=== PATIENT | female | born 1970 | race Hispanic/Latino ===

== ENCOUNTER 2016-11-05 00:17 | Emergency (ER) | payer OTHER ==
[2016-11-05 00:17] VITALS: BMI 28.3
[2016-11-05 01:10] VITALS: BP 150/87; PULSE 88; RESP 18; TEMP 97.9; O2SAT 98
[2016-11-05] MEDS ORDERED: Tmp-Smz 800 mg-160 mg DS Tab PO ONE (01:18)
--- NOTE | 2016-11-05 01:19 | ED PDOC ---
Arrival/HPI - General Chief Complaint: Upper Extremity Problem/Injury Time Seen by Provider: 11/05/16 01:08 Historian: Patient - History of Present Illness Narrative History of Present Illness (Text): 11/05/16 01:21 Rosalia Evans is a 46 year old female, with a history of WA, presents to the emergency department for evaluation of possible insect bit on left hand. Initially noticed some swelling to the area which has not resolved. Patient currently complains of tingling sensation to left hand radiating along the arm. Denies any fever, chills, headache, dizziness, nausea, vomiting, diarrhea, diaphoresis, urinary symptoms, or any other complaints at this time. Time/Duration: Other (yesterday night ) Symptom Course: Improving Severity Level: Mild Activities at Onset: Light Past Medical History - Provider Review Nursing Documentation Reviewed: Yes - Tetanus Immunization Tetanus Immunization: Unknown - Cardiac Hx Cardiac Disorders: Yes (WA) Hx WA: Yes (02/09/13) Hx Hypertension: Yes - Pulmonary Hx Respiratory Disorders: Yes Hx Bronchitis: Yes - Neurological Hx Neurological Disorder: No - HEENT Hx HEENT Disorder: No - Renal Hx Renal Disorder: No - Endocrine/Metabolic Hx Endocrine Disorders: No - Hematological/Oncological Hx Blood Disorders: No - Integumentary Hx Dermatological Disorder: No - Musculoskeletal/Rheumatological Hx Musculoskeletal Disorders: No Hx Falls: No - Gastrointestinal Hx Gastrointestinal Disorders: No - Genitourinary/Gynecological Hx Genitourinary Disorders: No - Psychiatric Hx Psychophysiologic Disorder: Yes (INSOMNIA) Hx Anxiety: Yes Hx Depression: No Hx Emotional Abuse: No Hx Panic Disorder: Yes Hx Physical Abuse: No Hx Substance Use: No - Past Surgical History Past Surgical History: No Previous - Surgical History Hx Cardiac Catheterization: Yes () Hx Coronary Stent: Yes (X1 02-09-13) - Suicidal Assessment Feels Threatened In Home Enviroment: No Family/Social History - Physician Review Nursing Documentation Reviewed: Yes Family/Social History: No Known Family HX Smoking Status: Former Smoker Hx Alcohol Use: Yes Frequency of alcohol use: Socially Hx Substance Use: No Hx Substance Use Treatment: No Allergies/Home Meds Allergies/Adverse Reactions: Allergies No Known Allergies Allergy (Verified 11/05/16 01:12) Home Medications: Home Meds Medication Instructions Recorded Confirmed Metoprolol Succinate [Metoprolol 25 mg PO DAILY 03/09/13 11/05/16 Succinate] Alprazolam [Xanax] 0.5 mg PO PRN PRN 05/15/16 11/05/16 Aspirin [Aspirin Chewable] 81 mg PO DAILY 05/15/16 11/05/16 Clopidogrel [Plavix] 75 mg PO DAILY 05/15/16 11/05/16 Zolpidem [Ambien] 10 mg PO HS 05/15/16 11/05/16 Review of Systems - Physician Review All systems were reviewed & negative as marked: Yes - Review of Systems Constitutional: Normal. absent: Fatigue, Fevers Respiratory: Normal. absent: SOB, Cough, Sputum Cardiovascular: Normal. absent: Chest Pain, Palpitations Musculoskeletal: Other (insect bite on left hand, tingling sensation radiating along left arm ) Psychiatric: Normal Physical Exam Vital Signs Reviewed: Yes Vital Signs Temp Pulse Resp BP Pulse Ox 11/05/16 01:09 97.9 F 88 18 150/87 98 Temperature: Afebrile Blood Pressure: Normal Pulse: Regular Respiratory Rate: Normal Appearance: Positive for: Well-Appearing, Non-Toxic, Comfortable Pain Distress: None Mental Status: Positive for: Alert and Oriented X 3 - Systems Exam Head: Present: Atraumatic, Normocephalic Pupils: Present: PERRL Conjunctiva: Present: Normal Mouth: Present: Moist Mucous Membranes Respiratory/Chest: Present: Clear to Auscultation, Good Air Exchange. No: Respiratory Distress, Accessory Muscle Use Cardiovascular: Present: Regular Rate and Rhythm, Normal S1, S2. No: Murmurs Abdomen: Present: Normal Bowel Sounds. No: Tenderness, Distention, Peritoneal Signs Upper Extremity: Present: Normal ROM, NORMAL PULSES, Neurovascularly Intact, Capillary Refill < 2s, Other (a small punctate wound on the left 4th metacarpal. No surrounding erythema or swelling ). No: Cyanosis, Edema, Tenderness, Swelling, Deformity Lower Extremity: Present: Normal Inspection. No: Edema Neurological: Present: GCS=15, CN II-XII Intact, Speech Normal Skin: Present: Warm, Dry, Normal Color. No: Rashes Psychiatric: Present: Alert, Oriented x 3, Normal Insight, Normal Concentration Medical Decision Making ED Course and Treatment: 11/05/16 01:28 Impression:A 46 year old female who presents to the emergency department complaining of insect bite on left hand. Plan: -- EKG -- Bactrim -- Prednisone -- Reassess and disposition Progress Notes: 11/05/16 01:29 NSR @ 84 bpm. Rightward axis. Prolonged QT. 11/05/16 03:25 On re-evaluation, patient feels better and is in no acute distress. I have discussed the results and plan with the patient, who expresses understanding. Patient in agreement with plan to be discharged home. Patient is stable for discharge. Patient was instructed to follow up with physician or return if symptoms worsen or new concerning symptoms arise. - Medication Orders Current Medication Orders: Discontinued Medications Prednisone (Prednisone Tab) 60 mg PO ONCE STA Stop: 11/05/16 01:19 Last Admin: 11/05/16 01:40 Dose: 60 mg Trimethoprim/Sulfamethoxazole (Bactrim Ds Tab) 1 tab PO ONCE ONE PRN Reason: Protocol Stop: 11/05/16 01:19 Last Admin: 11/05/16 01:40 Dose: 1 tab - Scribe Statement The provider has reviewed the documentation as recorded by the Kenibjagdish Paul Provider Attestation: Provider Scribe Attestation: All medical record entries made by the Scribe were at my direction and personally dictated by me. I have reviewed the chart and agree that the record accurately reflects my personal performance of the history, physical exam, medical decision making, and the department course for this patient. I have also personally directed, reviewed, and agree with the discharge instructions and disposition. Disposition/Present on Arrival - Present on Arrival Any Indicators Present on Arrival: No History of DVT/PE: No History of Uncontrolled Diabetes: No Urinary Catheter: No History of Decub. Ulcer: No History Surgical Site Infection Following: None - Disposition Have Diagnosis and Disposition been Completed?: Yes Diagnosis: Insect bite Disposition: HOME/ ROUTINE Disposition Time: 03:40 Condition: GOOD Discharge Instructions (ExitCare): Insect Bite or Sting (ED) Prescriptions: Sulfamethoxazole/Trimethoprim [Bactrim DS 800 mg-160 mg] 1 tab PO BID #14 tab predniSONE [predniSONE Tab] 20 mg PO TID #15 tab Referrals: Tolu Meyer MD [Primary Care Provider] - Follow up with primary Forms: [employer] (Setswana)
--- NOTE | 2016-11-05 19:43 | CARD ---
APPROVED REPORT EKG Measurement Heart [id number] <Conclusion> Normal sinus rhythm Rightward axis Prolonged QT Abnormal ECG
== END 2016-11-05 03:39 | disposition home or self-care (01) ==
LOC: ED 00:17
DX: S60.562A Insect bite (nonvenomous) of left hand, initial encounter (principal); W57.XXXA Bitten or stung by nonvenomous insect and other nonvenomous arthropods, initial encounter

== ENCOUNTER 2017-10-09 00:22 | Observation (INO) | payer OTHER ==
[2017-10-09 00:32] VITALS: RESP 18
--- NOTE | 2017-10-09 00:53 | ED PDOC ---
Arrival/HPI - General Historian: Patient - History of Present Illness Symptom Onset: Gradual Symptom Course: Unchanged Activities at Onset: Light Context: Home - General Chief Complaint: Upper Extremity Problem/Injury Time Seen by Provider: 10/09/17 00:46 - History of Present Illness Narrative History of Present Illness (Text): 10/09/17 00:51 Rosalia Evans is a 47 year old female, whose past medical history includes CAD, WA s/p stent, hypertension, and anxiety, who presents to the Emergency department complaining of right thigh swelling. Patient states she developed swelling to her right thigh and right forearm while sitting at home about 12 hours prior. Patient reports associated chest pain. Patient denies any fever, chills, shortness of breath, nausea, vomiting, diarrhea, urinary symptoms, back pain, neck pain, headache, trauma/injury, or any other complaints. (Darryn Burnett) Past Medical History - Provider Review Nursing Documentation Reviewed: Yes - Tetanus Immunization Tetanus Immunization: Unknown - Cardiac Hx Cardiac Disorders: Yes (WA) Hx WA: Yes (02/09/13) Hx Hypertension: Yes - Pulmonary Hx Respiratory Disorders: Yes Hx Bronchitis: Yes - Neurological Hx Neurological Disorder: No - HEENT Hx HEENT Disorder: No - Renal Hx Renal Disorder: No - Hematological/Oncological Hx Blood Disorders: No Hx Cancer: Yes (Breast ca) - Integumentary Hx Dermatological Disorder: No - Musculoskeletal/Rheumatological Hx Musculoskeletal Disorders: No Hx Falls: No - Gastrointestinal Hx Gastrointestinal Disorders: No - Genitourinary/Gynecological Hx Genitourinary Disorders: No - Psychiatric Hx Psychophysiologic Disorder: Yes (INSOMNIA) Hx Anxiety: Yes Hx Depression: No Hx Emotional Abuse: No Hx Panic Disorder: Yes Hx Physical Abuse: No Hx Substance Use: No - Past Surgical History Past Surgical History: No Previous - Surgical History Hx Cardiac Catheterization: Yes () Hx Coronary Stent: Yes (X1 02-09-13) - Anesthesia Hx Anesthesia: No - Suicidal Assessment Feels Threatened In Home Enviroment: No Family/Social History - Physician Review Nursing Documentation Reviewed: Yes Family/Social History: Unknown Family HX Smoking Status: Former Smoker Hx Alcohol Use: Yes Frequency of alcohol use: Socially Hx Substance Use: No Hx Substance Use Treatment: No Allergies/Home Meds Allergies/Adverse Reactions: Allergies No Known Allergies Allergy (Verified 08/08/17 01:12) Home Medications: Home Meds Medication Instructions Recorded Confirmed Metoprolol Succinate 25 mg PO DAILY 03/09/13 10/09/17 Alprazolam [Xanax] 0.5 mg PO PRN PRN 05/15/16 10/09/17 Aspirin [Aspirin Chewable] 81 mg PO DAILY 05/15/16 10/09/17 Clopidogrel [Plavix] 75 mg PO DAILY 05/15/16 10/09/17 Zolpidem [Ambien] 10 mg PO HS 05/15/16 10/09/17 Review of Systems - Physician Review All systems were reviewed & negative as marked: Yes - Review of Systems Constitutional: Normal. absent: Fevers Eyes: Normal ENT: Normal Respiratory: Normal. absent: SOB, Cough Cardiovascular: Chest Pain Gastrointestinal: Normal. absent: Abdominal Pain, Diarrhea, Nausea, Vomiting Genitourinary Female: Normal. absent: Dysuria, Frequency, Hematuria, Urine Output Changes Musculoskeletal: Other (+right forearm swelling, +right thigh swelling). absent : Back Pain, Neck Pain Skin: Normal. absent: Rash Neurological: Normal. absent: Headache, Dizziness Endocrine: Normal Hemo/Lymphatic: Normal Psychiatric: Normal Physical Exam Vital Signs Reviewed: Yes Temperature: Afebrile Blood Pressure: Normal Pulse: Regular Respiratory Rate: Normal Appearance: Positive for: Well-Appearing, Non-Toxic, Comfortable Pain Distress: None Mental Status: Positive for: Alert and Oriented X 3 - Systems Exam Head: Present: Atraumatic, Normocephalic Pupils: Present: PERRL Extroacular Muscles: Present: EOMI Conjunctiva: Present: Normal Mouth: Present: Moist Mucous Membranes Neck: Present: Normal Range of Motion Respiratory/Chest: Present: Clear to Auscultation, Good Air Exchange. No: Respiratory Distress, Accessory Muscle Use Cardiovascular: Present: Regular Rate and Rhythm, Normal S1, S2. No: Murmurs Abdomen: No: Tenderness, Distention, Peritoneal Signs Back: Present: Normal Inspection Upper Extremity: Present: Other (Minimal urticaria to right forearm, pt scratching the area). No: Cyanosis, Edema Lower Extremity: Present: Swelling (Swelling to right medial thigh, indurated). No: Edema Neurological: Present: GCS=15, CN II-XII Intact, Speech Normal Skin: Present: Warm, Dry, Normal Color. No: Rashes Psychiatric: Present: Alert, Oriented x 3, Normal Insight, Normal Concentration Vital Signs Pulse Resp BP Pulse Ox 10/09/17 00:32 95 H 18 144/86 98 Medical Decision Making - EKG Interpretation Interpreted by ED Physician: Yes Type: 12 lead EKG ED Course and Treatment: 10/09/17 00:51 Impression: 47 year old female complaining of right forearm/thigh swelling and chest pain. Plan: -- US Duplex Upper Extremities -- US Duplex Lower Extremities -- EKG -- Chest X-ray -- Labs, cardiac enzymes -- Reassess and disposition Prior Visits: Notes and results from previous visits were reviewed. Progress Notes: Reviewed EKG, NSR at [address]-segment elevations or depressions, no T-wave inversions, normal intervals. 10/09/17 03:14 US Duplex Upper Extremities negative for DVT. US Duplex Lower Extremities showed enlarged cyst at right mid-thigh, negative for DVT. 10/09/17 03:31 Chest X-ray reviewed, shows: Lungs: Normal. No consolidation. Pleural space: Normal. No pneumothorax. Heart/Mediastinum: Normal. No cardiomegaly. Bones/joints: Unremarkable for age. IMPRESSION: No acute findings. 10/09/17 03:[address] Yang, who is aware and agrees with plan. Accepts pt in to his service. Pt will go to Telemetry observation for chest pain and leg cyst. Requests Dr. Gallegos on consult. (Darryn Burnett) - Lab Interpretations Lab Results: 10/09/17 01:02 10/09/17 01:02 Lab Results 10/09/17 01:02: WBC 8.4 D, RBC 4.19, Hgb 10.4 L, Hct 32.2 L, MCV 76.8 L, MCH 24.8 L, MCHC 32.3, RDW 15.8 H, Plt Count 390, MPV 9.6 10/09/17 01:02: Sodium 139, Potassium 4.0, Chloride 102, Carbon Dioxide 22, Anion Gap 19, BUN 6 L, Creatinine 0.5 L, Est GFR ( Amer) > 60, Est GFR ( Non-Af Amer) > 60, Random Glucose 93, Calcium 8.5, Total Bilirubin 0.3, AST 33, ALT 25, Alkaline Phosphatase 77, Lactate Dehydrogenase 386, Total Creatine Kinase 59, Troponin I < 0.01, Total Protein 7.8, Albumin 4.4, Globulin 3.4, Albumin/Globulin Ratio 1.3 10/09/17 01:02: PT 10.7, INR 0.94, APTT 38.2 H - RAD Interpretation Radiology Orders: 10/09/17 00:53 CHEST PORTABLE [RAD] Stat 10/09/17 00:58 DUPLEX LOWER EXTRM VEIN RIGHT [US] Stat 10/09/17 00:59 DUPLEX UPPER EXTRM VEIN RIGHT [US] Stat - Medication Orders Current Medication Orders: Discontinued Medications Alprazolam (Xanax) 0.5 mg PO BID PRN; Protocol PRN Reason: Anxiety Aspirin (Aspirin) 325 mg PO ONCE STA Stop: 10/09/17 03:48 Last Admin: 10/09/17 03:54 Dose: 325 mg Aspirin (Aspirin Chewable) 81 mg PO DAILY [facility] Last Admin: 10/09/17 10:32 Dose: 81 mg Atorvastatin Calcium (Lipitor) 80 mg PO DIN DAYSI Clopidogrel Bisulfate (Plavix) 75 mg PO DAILY [facility] Last Admin: 10/09/17 10:32 Dose: 75 mg Diphenhydramine HCl (Benadryl) 50 mg IVP STAT STA Stop: 10/09/17 01:28 Last Admin: 10/09/17 01:27 Dose: 50 mg IVP Administration Document 10/09/17 01:27 AD (Rec: 10/09/17 01:40 AD [id number]) Charges for Administration # of IVP Administrations 1 Metoprolol Succinate (Toprol Xl) 25 mg PO DAILY [facility] Last Admin: 10/09/17 10:32 Dose: 25 mg MAR Pulse and Blood Pressure Document 10/09/17 10:32 CD (Rec: 10/09/17 10:32 CD [id number]) Pulse Pulse Rate (60-90 beats/min) 74 Blood Pressure Blood Pressure (100/60-150/90 mm Hg) 124/81 - Scribe Statement The provider has reviewed the documentation as recorded by the Scribe - Scribe Statement Radha Prince All medical record entries made by the Scribe were at my direction and personally dictated by me. I have reviewed the chart and agree that the record accurately reflects my personal performance of the history, physical exam, medical decision making, and the department course for this patient. I have also personally directed, reviewed, and agree with the discharge instructions and disposition. (Darryn Burnett) Disposition/Present on Arrival - Present on Arrival Any Indicators Present on Arrival: No History of DVT/PE: No History of Uncontrolled Diabetes: No Urinary Catheter: No History of Decub. Ulcer: No History Surgical Site Infection Following: None - Disposition Have Diagnosis and Disposition been Completed?: Yes Disposition Time: 03:46 Patient Plan: Observation - Disposition Diagnosis: Chest pain, Cyst of skin Disposition: HOSPITALIZED Condition: STABLE
[2017-10-09 01:18] LABS: HEMOGLOBIN 10.4 g/dL (12.0-16.0); MEAN CELL VOLUME 76.8 fl (80.0-105.0); MEAN CORPUSCULAR HEMOGLOBIN 24.8 pg (25.0-35.0); MEAN CORPUSCULAR HGB CONC 32.3 g/dl (31.0-37.0); MEAN PLATELET VOLUME 9.6 fl (7.0-11.0); RBC 4.19 10^6/uL (3.5-6.1); RED CELL DISTRIBUTION WIDTH 15.8 % (11.5-14.5); WHITE BLOOD COUNT 8.4 10^3/ul (4.5-11.0)
[2017-10-09 01:22] LABS: ALB/GLOB RATIO 1.3 (1.1-1.8); ALBUMIN 4.4 g/dL (3.0-4.8); ALT/SGPT 25 U/L (7-56); AST/SGOT 33 U/L (14-36); BLOOD UREA NITROGEN 6 mg/dL (7-21); CALCIUM 8.5 mg/dL (8.4-10.5); GFR AFRICAN-AMERICAN > 60; GFR NON-AFRICAN AMERICAN > 60
[2017-10-09 01:24] LABS: INR 0.94 (0.93-1.08); PARTIAL THROMBOPLASTIN TIME 38.2 Seconds (25.1-36.5); PROTHROMBIN TIME 10.7 SECONDS (9.4-12.5)
[2017-10-09] MEDS ORDERED: DiphenhydrAMINE 50 mg/ml Inj IVP STA (01:27)
[2017-10-09 01:33] LABS: TROPONIN I < 0.01 ng/mL
[2017-10-09 04:40] VITALS: O2SAT 100
[2017-10-09 05:10] VITALS: BP 124/81; TEMP 98; BMI 26.1
--- NOTE | 2017-10-09 05:32 | CP.PCM.HP ---
<Zeenat Chauhan - Last Filed: 10/09/17 13:21> History of Present Illness - History of Present Illness History of Present Illness: H&P For Bertin Burris PGY3 This is a 47yo female with past medical history of CAD s/p PCI, anxiety and tobacco abuse who came to ED for hand lesion on R hand x 1 day. She reports it started yesterday and works inside and outside so she is not sure if she got bit by a bug. It was itchy and did not radiate or have any pus or swelling, but was red. She got benadryl in the ED and when she got the medication through the L arm she started to have chest pain in her L side of the chest that felt like a pressure. Patient reports she has anxiety and was not sure she it was her heart or her anxiety. The chest pain was intermittent and went away on its own. She had V.fib arrest and was found to have LAD occlusion with JEFFERSON placement in 2012. She has not seen Dr. Gallegos, her grass cutter since 2013. She still takes her medication. She also noticed a large lump in her L thigh that she noticed when she was in the ED. She did hit her leg yesterday while at work. She had a cyst in that area a long time ago and never had it removed. She denies chest pain, shortness of breath, nausea/vomiting/diarrhea, fever/chills, numbness/ tingling, dysuria/hematuria. In the ED, patient was found to be anemic with low MCV. She does admit to having heavy, frequent periods. She has not seen in wax pattern repairer in several years. Past medical history: V. fib cardiac arrest-CAD s/p PCI, anxiety, tobacco abuse Past surgical history: PCI Home meds: Reviewed as per MAR Allergies: NKDA Social history: Used to be heavy smoker, now smokes <1/2ppd x 5yrs, denies EtOH or drug use, works in hotels inside/outside, lives with family Family history: Dad: Age 30- sudden cardiac -hypertrophic cardiomyopathy Sister: Heart attack-age 45 Nephew: Pacemaker age 16 Present on Admission - Present on Admission Any Indicators Present on Admission: No Review of Systems - Review of Systems All systems: reviewed and no additional remarkable complaints except Review of Systems: 12 point ROS reviewed as per HPI and is otherwise negative. Past Patient History - Tetanus Immunizations Tetanus Immunization: Unknown - Past Social History Smoking Status: Light Smoker < 10 Cigarettes Daily - CARDIAC Hx Cardiac Disorders: Yes ([place]) Hx Cardia Arrhythmia: Yes (Vtach, Vfib 2012) Hx Hypercholesterolemia: Yes Hx Hypertension: Yes Hx Peripheral Vascular Disease: Yes - PULMONARY Hx Respiratory Disorders: Yes Hx Chronic Obstructive Pulmonary Disease (COPD): Yes - NEUROLOGICAL Hx Neurological Disorder: No - HEENT Hx HEENT Problems: No - RENAL Hx Chronic Kidney Disease: No - ENDOCRINE/METABOLIC Hx Endocrine Disorders: No - HEMATOLOGICAL/ONCOLOGICAL Hx Blood Disorders: No Hx Cancer: No (family hx) - INTEGUMENTARY Hx Dermatological Problems: No - MUSCULOSKELETAL/RHEUMATOLOGICAL Hx Musculoskeletal Disorders: No Hx Falls: No - GASTROINTESTINAL Hx Gastrointestinal Disorders: No - GENITOURINARY/GYNECOLOGICAL Hx Genitourinary Disorders: No - PSYCHIATRIC Hx Psychophysiologic Disorder: Yes (insomnia) Hx Anxiety: Yes Hx Panic Symptoms: Yes Hx Substance Use: No - SURGICAL HISTORY Hx Surgeries: No (cardiac cath) Hx Cardiac Catheterization: Yes (2012) Hx Coronary Stent: Yes (2012) - ANESTHESIA Hx Anesthesia: No Meds Home Medications: Home Medication List Medication Instructions Recorded Confirmed Type Ferrous Sulfate [Feosol] 325 mg PO TID #90 tab 10/09/17 Rx Pitavastatin Calcium [Livalo] 4 mg PO DAILY #30 tab 10/09/17 Rx Allergies/Adverse Reactions: Allergies Allergy/AdvReac Type Severity Reaction Status Date / Time No Known Allergies Allergy Verified 11/05/16 01:12 Physical Exam - Constitutional Appears: No Acute Distress - Head Exam Head Exam: ATRAUMATIC, NORMAL INSPECTION, NORMOCEPHALIC - Eye Exam Eye Exam: Normal appearance, PERRL Pupil Exam: NORMAL ACCOMODATION - ENT Exam ENT Exam: Mucous Membranes Moist - Respiratory Exam Respiratory Exam: Clear to Auscultation Bilateral, Stridor, NORMAL BREATHING PATTERN. absent: Rhonchi, Wheezes - Cardiovascular Exam Cardiovascular Exam: REGULAR RHYTHM, +S1, +S2. absent: Gallop, Rubs, Systolic Murmur - GI/Abdominal Exam GI & Abdominal Exam: Normal Bowel Sounds, Soft. absent: Mass, Rebound, Rigid, Tenderness - Extremities Exam Extremities exam: Positive for: normal inspection. Negative for: calf tenderness, pedal edema - Neurological Exam Neurological exam: Alert, CN II-XII Intact, Normal Gait, Oriented x3 - Psychiatric Exam Psychiatric exam: Normal Affect, Normal Mood - Skin Skin Exam: Dry, Intact, Warm Additional comments: Large lump on L anterior thigh, no erythema or pain or drainage R palm erythema near ulna - no pus or drainage Results - Vital Signs Recent Vital Signs: Last Vital Signs Temp 98.0 F 10/09/17 04:55 Pulse 72 10/09/17 05:01 Resp 18 10/09/17 04:55 BP 124/81 10/09/17 04:55 Pulse Ox 100 10/09/17 04:20 - Labs Result Diagrams: 10/09/17 01:02 10/09/17 01:02 Assessment & Plan - Assessment and Plan (Free Text) Assessment: This is a 47yo female with past medical history of CAD s/p PCI, anxiety and tobacco abuse who was admitted for 1. Atypical chest pain - can be secondary anxiety 2. Anemia - Microcytic- secondary to vaginal bleeding 3. Skin lesions - secondary to bug bite v. allergic reaction - US of Leg did not show evidence of DVT. US showed most likely cyst 4. Hx of CAD 5. Hx of Anxiety 6. Tobacco abuse Plan: Labs and imaging reviewed. Patient recommended to follow up with wax pattern repairer as outpatient for dysfunctional uterine bleeding. Recommended to take OTC iron. Patient was evaluated by grass cutter who recommended outpatient follow up and patient can be discharged. Lipid panel was done and patient started on high dose statin since family history of sudden cardiac . Patient will continue other home medication and follow up with Dr. Yang as outpatient in 1 week. Advised patiend on smoking cessation. Case seen, discussed and reviewed with Dr. Yang. Bertin Chauhan PGY3 - Date & Time Date: 10/09/17 Time: 07:00 <Orlando Yang - Last Filed: 10/09/17 23:13> Results - Vital Signs Recent Vital Signs: Last Vital Signs Temp 98.0 F 10/09/17 04:55 Pulse 74 10/09/17 10:32 Resp 18 10/09/17 06:00 BP 124/81 10/09/17 10:32 Pulse Ox 100 10/09/17 04:20 - Labs Result Diagrams: 10/09/17 01:02 07/12/18 01:02 Labs: Laboratory Results - last 24 hr 10/09/17 10/09/17 10/09/17 06:40 06:40 06:40 Iron 20 L TIBC 453 % Saturation 4 L Ferritin 6.6 Troponin I < 0.01 Triglycerides 175 H Cholesterol 219 H LDL Cholesterol Direct 133 H HDL Cholesterol 52 TSH 3rd Generation 10/09/17 06:40 Iron TIBC % Saturation Ferritin Troponin I Triglycerides Cholesterol LDL Cholesterol Direct HDL Cholesterol TSH 3rd Generation 1.97 Assessment & Plan - Assessment and Plan (Free Text) Plan: Pt seen and examined. I have reviewed the note of the medical charge entry specialist and agree with it. I have discussed the assessment and plan with the resident. I have reviewed the patient's labs and medications. Pt with atypical chest pain. Spoke to Dr Gallegos and pt can go home. Will be placed on Lipitor.
[2017-10-09 07:09] LABS: HDL CHOLESTEROL 52 mg/dL (29-60); IRON 20 ug/dL (45-180)
[2017-10-09 07:18] LABS: % IRON SATURATION 4 % (20-55); TOTAL IRON BINDING CAPACITY 453 ug/dL (265-497)
[2017-10-09 07:19] LABS: LDL CHOLESTEROL 133 mg/dL (0-129)
[2017-10-09 07:20] LABS: TROPONIN I < 0.01 ng/mL
--- NOTE | 2017-10-09 08:06 | RAD ---
Date of service: 10/09/2017 HISTORY: medical clearance COMPARISON: 02/09/2013 FINDINGS: LUNGS: There is an 18 mm density in the right lung apex suspicious for a lung mass or masslike consolidation. Further evaluation with CT is recommended. PLEURA: No significant pleural effusion identified, no pneumothorax apparent. CARDIOVASCULAR: Normal. OSSEOUS STRUCTURES: No significant abnormalities. VISUALIZED UPPER ABDOMEN: Normal. OTHER FINDINGS: None. IMPRESSION: There is an 18 mm density in the right lung apex suspicious for a lung mass or masslike consolidation. Further evaluation with CT is recommended.
[2017-10-09] MEDS ORDERED: Metoprolol Succinate 25 mg XL Tab PO SCH (10:00)
[2017-10-09 10:33] VITALS: PULSE 74
--- NOTE | 2017-10-09 12:33 | CON ---
DATE: 10/09/2017 CARDIOLOGY CONSULTATION HISTORY OF PRESENT ILLNESS: The patient is a 47-year-old woman who presented with a little swelling of her right upper extremity. After IV injection, the patient complained of pain in the left arm as well as extending to the upper part of the chest. The patient's past medical history is notable for history of an anterior wall myocardial infarction, treated with emergency PTCA and stent of a 99% LAD years ago. In addition, she has documented severe peripheral vascular disease, COPD, hypertension and hypercholesterolemia. She continues to smoke. Currently, the patient is chest pain-free. SOCIAL HISTORY The patient is an active smoker unapologetically. REVIEW OF SYSTEMS: A 14-point review of systems was reviewed in detail. No cardiac symptoms were noted. PHYSICAL EXAMINATION: VITAL SIGNS: Blood pressure 124/81, heart rate is in the 70s. NECK: Negative JVD. LUNGS: Without rales. HEART: S1 and S2. EXTREMITIES: Without edema. LABORATORY DATA AND IMAGING: EKG shows no acute changes. Hemoglobin is 10.4. Troponins are negative x2. Laboratories are otherwise unremarkable. Her cholesterol is 219. IMPRESSION: 1. Atypical chest pain. 2. No evidence for acute coronary syndrome. 3. History of anterior wall myocardial infarction. 4. Chronic obstructive pulmonary disease. 5. Coronary artery disease. 6. Documented peripheral vascular disease. PLAN: Given these findings, I have discussed the dangers of her continued smoking with the patient in detail. The patient does not want to hear about it. Given that there is no evidence for acute coronary syndrome, the patient from a cardiac perspective can be discharged. We will arrange for an outpatient stress test. I will reinforce with the patient about the need to stop smoking. Pete Gallegos MD
--- NOTE | 2017-10-09 15:25 | US ---
PROCEDURE: Right lower extremity venous US HISTORY: Leg pain and swelling. Evaluate for DVT. PHYSICIAN(S): Pete Meyer M.D. TECHNIQUE: Duplex sonography and color-flow Doppler with graded compression were used to evaluate the deep venous system of the right lower extremity. FINDINGS: The visualized deep venous system of the right lower extremity is sonographically normal and compressible. Normal waveforms and augmentation are seen. There is no sonographic evidence for deep venous thrombosis in the visualized segments of the right lower extremity. In the mid right thigh, there is a 7.2 x 8.0 cm well-circumscribed fluid collection with internal echoes. This could represent sequelae of previous trauma IMPRESSION: 1. No sonographic evidence for deep venous thrombosis in the visualized segments of the right lower extremity.
--- NOTE | 2017-10-09 15:26 | US ---
PROCEDURE: Right upper extremity venous US CLINICAL HISTORY: Arm pain and swelling Evaluate for deep venous thrombosis. PHYSICIAN(S): Pete Meyer M.D FINDINGS: The visualized rightinternal jugular vein is sonographically normal and compressible. No evidence of obstruction or thrombus is seen. The visualized segments of the right subclavian vein are patent with normal waveforms. No sonographic evidence of obstruction or thrombosis is seen. The visualized deep venous system of the proximal right upper extremity is sonographically normal and compressible. IMPRESSION: 1. No sonographic evidence for deep venous thrombosis in the visualized segments of the right upper extremity.
--- NOTE | 2017-10-09 22:12 | CARD ---
APPROVED REPORT Date of service: 10/09/2017 EKG Measurement Heart [id number] <Conclusion> Normal sinus rhythm Normal ECG
== END 2017-10-09 13:01 | disposition home or self-care (01) ==
LOC: ED 00:22 → ERH 03:04 → 2RNO 04:33
PROVIDERS: ADMIT Internal Medicine Nephrology; ATTEND Internal Medicine Nephrology
DX: R07.89 Other chest pain (principal); L72.9 Follicular cyst of the skin and subcutaneous tissue, unspecified; W57.XXXA Bitten or stung by nonvenomous insect and other nonvenomous arthropods, initial encounter; T78.40XA Allergy, unspecified, initial encounter; I25.10 Atherosclerotic heart disease of native coronary artery without angina pectoris; I10 Essential (primary) hypertension; F41.0 Panic disorder [episodic paroxysmal anxiety]; E78.00 Pure hypercholesterolemia, unspecified; D50.0 Iron deficiency anemia secondary to blood loss (chronic); N93.9 Abnormal uterine and vaginal bleeding, unspecified; I25.2 Old myocardial infarction; I73.9 Peripheral vascular disease, unspecified; J44.9 Chronic obstructive pulmonary disease, unspecified; Z79.02 Long term (current) use of antithrombotics/antiplatelets; Z82.49 Family history of ischemic heart disease and other diseases of the circulatory system; Z85.3 Personal history of malignant neoplasm of breast; Z86.74 Personal history of sudden cardiac arrest; Z95.5 Presence of coronary angioplasty implant and graft; F17.210 Nicotine dependence, cigarettes, uncomplicated
CPT/HCPCS: 71045; 80053; 80061; 82550; 82728; 83540; 83550; 83615; 84443; 84484; 85027; 85610; 85730; 93005; 93971; 96374; 99285; G0378; J1200